=== PATIENT | male | born 1960 | race Caucasian/White ===

== ENCOUNTER 2017-12-21 09:28 | Emergency (ER) | payer MEDICAID ==
[2017-12-21] MEDS ORDERED: Sodium Chloride 0.9% 1,000 ML IV SCH ×2 (09:45→11:00)
[2017-12-21] MEDS ORDERED: Meclizine 25 MG Tab PO ONE ×2 (09:59→11:53)
[2017-12-21] MEDS ORDERED: Ondansetron 4 MG/2 ML SDV IVPUSH ONE (09:59)
--- NOTE | 2017-12-21 10:01 | EDM.PDOC ---
ED HPI GENERAL MEDICAL PROBLEM - General Chief Complaint: Neurological Problem Stated Complaint: VOMITING; DIZZINESS Time Seen by Provider: 12/21/17 10:00 Source of Information: Reports: Patient History Limitations: Reports: No Limitations - History of Present Illness INITIAL COMMENTS - FREE TEXT/NARRATIVE: during the nite he developed marked vertigo and he is having a difficult time ambulating. Onset: Today, Sudden Duration: Hour(s): Location: Reports: Head Associated Symptoms: Reports: No Other Symptoms - Related Data Allergies Allergy/AdvReac Type Severity Reaction Status Date / Time No Known Allergies Allergy Verified 09/25/13 16:16 Home Meds: Home Meds NK [No Known Home Meds] 09/25/13 [History] Social & Family History - Tobacco Use Smoking Status *Q: Current Every Day Smoker Years of Tobacco use: 44 Packs/Tins Daily: 0.5 - Caffeine Use Caffeine Use: Reports: Soda, Tea - Recreational Drug Use Recreational Drug Type: Reports: Marijuana/Hashish Recreational Drug Use Frequency: Daily ED ROS GENERAL - Review of Systems Review Of Systems: See Below Constitutional: Reports: No Symptoms HEENT: Reports: No Symptoms Respiratory: Reports: No Symptoms Cardiovascular: Reports: No Symptoms Endocrine: Reports: No Symptoms GI/Abdominal: Reports: No Symptoms : Reports: No Symptoms Neurological: Reports: Dizziness, Other (pt has a episode of severe vertigo. ) Psychiatric: Reports: Anxiety ED EXAM, NEURO - Physical Exam Exam: See Below Text/Narrative:: pt arrived with a history of acute onset of vertigo in the middle of the nite. He has not had that in the past. He did not have a headache. He did do alot of vomiting. Hedid have slight visual blurring. Exam Limited By: No Limitations General Appearance: Alert, Anxious, Moderate Distress, Other (pupils are equal and reactive. ) Ears: Normal TMs Nose: Normal Inspection Throat/Mouth: Normal Inspection Head Exam: Atraumatic Neck: Normal Inspection Respiratory/Chest: No Respiratory Distress Cardiovascular: Regular Rate, Rhythm GI/Abdominal: Soft, Non-Tender, Other (pt has been doing alot of vomiting. ) (Male) Exam: Deferred Rectal (Males) Exam: Deferred Neurological: Alert, Oriented x 3, Other (marked vertigo He does not have definite nystagmus. 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 ) Psychiatric: Anxious Course - Vital Signs Last Recorded V/S: Last Vital Signs Temp 35.9 C 12/21/17 09:49 Pulse 57 L 12/21/17 11:55 Resp 12 12/21/17 11:55 BP 154/82 H 12/21/17 11:55 Pulse Ox 95 12/21/17 11:55 - Orders/Labs/Meds Orders: Active Orders 24 hr Category Date Time Status Head wo Cont [CT] Stat Exams 12/21/17 09:58 Taken UA W/MICROSCOPIC [URIN] Urgent Lab 12/21/17 10:57 Ordered Sodium Chloride 0.9% [Normal Saline] 1,000 ml Med 12/21/17 09:45 Active IV ASDIRECTED Sodium Chloride 0.9% [Normal Saline] 1,000 ml Med 12/21/17 11:00 Active IV ASDIRECTED Medication Orders Sodium Chloride (Normal Saline) 1,000 mls @ 500 mls/hr IV ASDIRECTED ULICES Last Admin: 12/21/17 10:07 Dose: 500 mls/hr Sodium Chloride (Normal Saline) 1,000 mls @ 999 mls/hr IV ASDIRECTED ULICES Last Admin: 12/21/17 12:02 Dose: 999 mls/hr Labs: Laboratory Tests 12/21/17 12/21/17 12/21/17 Range/Units 09:49 09:49 10:57 WBC 5.3 (4.5-11.0) K/uL RBC 5.38 (4.30-5.90) M/uL Hgb 17.1 H (12.0-15.0) g/dL Hct 47.6 (40.0-54.0) % MCV 89 (80-98) fL MCH 32 H (27-31) pg MCHC 36 (32-36) % Plt Count 223 (150-400) K/uL Neut % (Auto) 50 (36-66) % Lymph % (Auto) 36 (24-44) % Adams % (Auto) 11 H (2-6) % Eos % (Auto) 3 (2-4) % Baso % (Auto) 1 (0-1) % Sodium 137 L (140-148) mmol/L Potassium 4.1 (3.6-5.2) mmol/L Chloride 102 (100-108) mmol/L Carbon Dioxide 24 (21-32) mmol/L Anion Gap 15.1 H (5.0-14.0) mmol/L BUN 12 (7-18) mg/dL Creatinine 0.8 (0.8-1.3) mg/dL Est Cr Clr Drug Dosing 98.56 mL/min Estimated GFR (MDRD) > 60 (>60) Glucose 357 H (74-106) mg/dL Calcium 8.7 (8.5-10.1) mg/dL Total Bilirubin 0.4 (0.2-1.0) mg/dL AST 15 (15-37) U/L ALT 32 (12-78) U/L Alkaline Phosphatase 102 (46-116) U/L Total Protein 7.0 (6.4-8.2) g/dL Albumin 3.7 (3.4-5.0) g/dL Globulin 3.3 (2.3-3.5) g/dL Albumin/Globulin Ratio 1.1 L (1.2-2.2) Urine Color Yellow Urine Appearance Clear Urine pH 5.0 (4.5-8.0) Ur Specific [place] 1.020 (1.008-1.030) Urine Protein 30 H (NEGATIVE) mg/dL Urine Glucose (UA) 1000 H (NEGATIVE) mg/dL Urine Ketones 15 H (NEGATIVE) mg/dL Urine Occult Blood Negative (NEGATIVE) Urine Nitrite Negative (NEGAITVE) Urine Bilirubin Negative (NEGATIVE) Urine Urobilinogen Normal (NORMAL) mg/dL Ur Leukocyte Esterase Negative (NEGATIVE) Urine RBC Not seen (0-5) Urine WBC 0-5 (0-5) Ur Epithelial Cells Rare Amorphous Sediment Not seen Urine Bacteria Not seen Urine Mucus Not seen Meds: Medications Generic Name Dose Route Start Last Admin Trade Name Freq PRN Reason Stop Dose Admin Sodium Chloride 1,000 mls @ 500 mls/hr 12/21/17 09:45 12/21/17 10:07 Normal Saline IV 500 mls/hr ASDIRECTED ULICES Administration Sodium Chloride 1,000 mls @ 999 mls/hr 12/21/17 11:00 12/21/17 12:02 Normal Saline IV 999 mls/hr ASDIRECTED ULICES Administration Discontinued Medications Generic Name Dose Route Start Last Admin Trade Name Freq PRN Reason Stop Dose Admin Insulin Human Regular 5 unit 12/21/17 11:16 12/21/17 11:20 Novolin R SUBCUT 12/21/17 11:17 5 units ONETIME ONE Administration Protocol Meclizine HCl 25 mg 12/21/17 09:59 12/21/17 10:08 Antivert PO 12/21/17 10:00 25 mg ONETIME ONE Administration Meclizine HCl 25 mg 12/21/17 11:53 12/21/17 12:02 Antivert PO 12/21/17 11:54 25 mg ONETIME ONE Administration Ondansetron HCl 4 mg 12/21/17 09:59 12/21/17 10:07 Zofran IVPUSH 12/21/17 10:00 4 mg ONETIME ONE Administration - Re-Assessments/Exams Free Text/Narrative Re-Assessment/Exam: 12/21/17 12:06 iv fluids were started. He was given antivert 25 mg and zoforan 4 mg. He had a cat scan of the head which was neg for acute findings. He was found to have a bs of 375. He was given insulin 5 units. --subq. He did improve and felt alot better.He does come from a very strong history of diabetes in his family. Departure - Departure Time of Disposition: 12:31 Disposition: Home, Self-Care 01 Condition: Fair Clinical Impression: Inner ear dysfunction, Newly diagnosed diabetes - Discharge Information Referrals: PCP,None [Primary Care Provider] - Forms: ED Department Discharge Care Plan Goals: encourage fluids, antivert 25 tid for vertigo, appt at the clinic the first of the week for diabetic instruction and with a Dr for follow up. [id number] 1 tab daily. - My Orders Last 24 Hours: My Active Orders 12/21/17 09:45 Sodium Chloride 0.9% [Normal Saline] 1,000 ml IV ASDIRECTED 12/21/17 09:58 Head wo Cont [CT] Stat 12/21/17 10:57 UA W/MICROSCOPIC [URIN] Urgent 12/21/17 11:00 Sodium Chloride 0.9% [Normal Saline] 1,000 ml IV ASDIRECTED - Assessment/Plan Last 24 Hours: My Active Orders 12/21/17 09:45 Sodium Chloride 0.9% [Normal Saline] 1,000 ml IV ASDIRECTED 12/21/17 09:58 Head wo Cont [CT] Stat 12/21/17 10:57 UA W/MICROSCOPIC [URIN] Urgent 12/21/17 11:00 Sodium Chloride 0.9% [Normal Saline] 1,000 ml IV ASDIRECTED
[2017-12-21] MEDS ORDERED: Insulin Regular, Human 100 Units/ML 10 ML Vial SUBCUT ONE (11:16)
== END 2017-12-21 13:00 | disposition home or self-care (01) ==
LOC: JP.ED 09:28
DX: H83.2X9 Labyrinthine dysfunction, unspecified ear (principal); E11.9 Type 2 diabetes mellitus without complications; F17.210 Nicotine dependence, cigarettes, uncomplicated
CPT/HCPCS: 36415; 70450; 80053; 81001; 82962; 85025; 96361; 96374; 99284; A9270; J2405; J7040

== ENCOUNTER 2018-01-06 16:30 | Emergency (ER) | payer MEDICAID ==
[2018-01-06] MEDS ORDERED: Lactated Ringers 1,000 ML IV ONE (18:37)
[2018-01-06] MEDS ORDERED: Meclizine 25 MG Tab PO ONE (19:00)
[2018-01-06] MEDS ORDERED: Meclizine 25 MG Tab ONE (19:01)
[2018-01-06] MEDS ORDERED: Aspirin 81 MG Tab.Chew PO ONE (19:22)
[2018-01-06] MEDS ORDERED: Aspirin 81 MG Tab.Chew ONE (19:27)
== END 2018-01-06 20:30 | disposition home or self-care (01) ==
LOC: JP.ED 16:30
DX: R42 Dizziness and giddiness (principal); F17.210 Nicotine dependence, cigarettes, uncomplicated; E11.9 Type 2 diabetes mellitus without complications; Z79.84 Long term (current) use of oral hypoglycemic drugs
CPT/HCPCS: 36415; 70450; 80048; 84484; 85025; 96360; 99284; A9270; J7120

== ENCOUNTER 2018-02-26 08:03 | Day surgery (SDC) | payer MEDICARE, MEDICAID ==
[2018-02-26] MEDS ORDERED: Lactated Ringers 1,000 ML IV SCH (08:30)
[2018-02-26] MEDS ORDERED: Propofol 200 MG/20 ML SDV ONE ×2 (10:00→10:51)
[2018-02-26] MEDS ORDERED: fentaNYL 100 MCG/2 ML SDV ONE (10:00)
[2018-02-26] MEDS ORDERED: Midazolam 1 MG/ML 2 ML SDV ONE (10:00)
[2018-02-26] MEDS ORDERED: Lidocaine 1% 4 ML ONE (11:20)
--- NOTE | 2018-02-26 14:05 | OR ---
DATE OF PROCEDURE: 02/26/2018 PREOPERATIVE DIAGNOSIS: Colon cancer screening. POSTOPERATIVE DIAGNOSES: Multiple colon polyps, 25 cm from the anal verge and 40 cm from the anal verge, transverse colon, proximal transverse colon. PROCEDURES PERFORMED: Colonoscopy to the cecum with biopsy and/or snare cautery polypectomy of multiple polyps. SURGEON: Samuel Vega MD. ANESTHESIA: IV anesthesia with monitored anesthesia care. INDICATION: This 58-year-old white male is referred for a colonoscopy for colon cancer screening. He has never had a colonoscopic exam. I counseled him for the procedure, including risks and alternatives, and he gave his informed consent to proceed. DESCRIPTION OF PROCEDURE: The patient was placed in the left lateral decubitus position. IV anesthesia was administered by the Anesthesia Service. Time-out was held. A rectal exam was performed, which was unremarkable. The flexible video Olympus colonoscope was introduced through his anus, up his rectum and out his colon all the way to the cecum. En route, at 40 cm from the anal verge, we saw a bilobed pedunculated polyp. The snare was passed about one portion of the polyp, was tightened up and amputated as electrocautery was applied. This polyp was aspirated up on the end of the scope, and the scope was removed with the polyp retrieved from the end of the scope. The scope was reintroduced back into the colon and passed up to 40 cm, but at about 25 cm, a small polyp was seen, which was removed with the biopsy forceps. Once we reached 40 cm from the anal verge, the remainder of the polyp was removed. The snare was again passed about its base. It was elevated up away from the bowel wall and amputated as electrocautery was applied. The polyp was aspirated up on to the end of the scope, and the scope was removed, retrieving the polyp from the end of the scope. The scope was then introduced up to the colon, all the way to the cecum. Once the cecum was reached, the scope was slowly withdrawn examining the mucosa throughout. We saw a small polyp in the transverse colon, which was removed with the biopsy forceps. In the right colon, we saw two polyps adjacent to each other, which were removed with the snare, and these were both aspirated up through the scope and captured in a polyp trap. No other lesions were noted. The scope was retroflexed in the rectum with the distal rectum appearing unremarkable. The scope was straightened and removed. He tolerated the procedure well. Samuel Vega MD /[id number] MTDD
== END 2018-02-26 13:05 | disposition home or self-care (01) ==
LOC: JP.SDS 08:03
PROVIDERS: ATTEND Surgery
DX: Z12.11 Encounter for screening for malignant neoplasm of colon (principal); D12.5 Benign neoplasm of sigmoid colon; D12.3 Benign neoplasm of transverse colon; E11.9 Type 2 diabetes mellitus without complications; J45.909 Unspecified asthma, uncomplicated; Z86.010 Personal history of colon polyps
CPT/HCPCS: 45380; 45385; J2001; J2250; J2704; J3010; J7120; 88305

== ENCOUNTER 2022-12-13 13:48 | Emergency (ER) | payer MEDICARE, MEDICAID ==
[2022-12-13] MEDS ORDERED: Sodium Chloride 0.9% 10 ML Syringe FLUSH PRN (14:42)
[2022-12-13] MEDS ORDERED: Ondansetron 4 MG/2 ML SDV IVPUSH ONE (14:42)
[2022-12-13] MEDS ORDERED: Iopamidol 612 MG/ML 100 ML Bottle IV ONE (14:50)
[2022-12-13] MEDS ORDERED: Sodium Chloride 0.9% 50 ML IV SCH (15:00)
[2022-12-13] MEDS ORDERED: Sodium Chloride 0.9% 1,000 ML IV ONE (15:03)
[2022-12-13 15:21] LABS: ESTIMATED GFR 100 mL/min (>60)
[2022-12-13 15:36] LABS: CORONAVIRUS COVID-19 NAA NEGATIVE (NEGATIVE)
== END 2022-12-13 16:35 | disposition home or self-care (01) ==
LOC: JP.ED 13:48
DX: K52.9 Noninfective gastroenteritis and colitis, unspecified (principal); E86.0 Dehydration; N28.9 Disorder of kidney and ureter, unspecified; E11.10 Type 2 diabetes mellitus with ketoacidosis without coma; E78.00 Pure hypercholesterolemia, unspecified; J44.9 Chronic obstructive pulmonary disease, unspecified; E11.42 Type 2 diabetes mellitus with diabetic polyneuropathy; Z90.49 Acquired absence of other specified parts of digestive tract; Z88.8 Allergy status to other drugs, medicaments and biological substances; Z88.5 Allergy status to narcotic agent; Z91.018 Allergy to other foods; Z79.82 Long term (current) use of aspirin; Z79.899 Other long term (current) drug therapy; Z20.822 Contact with and (suspected) exposure to COVID-19
CPT/HCPCS: 0241U; 36415; 74177; 80053; 81001; 82009; 82800; 83605; 83690; 85025; 86140; 96361; 96374; 99284; J2405; J3490; J7030; Q9967

== ENCOUNTER 2023-03-19 11:45 | Emergency (ER) | payer MEDICARE, MEDICAID | END 2023-03-19 12:55 | disposition left against medical advice (07) | LOC: JP.ED 11:45 | DX: Z53.21 Procedure and treatment not carried out due to patient leaving prior to being seen by health care provider (principal) ==